=== PATIENT | male | born 1980 | race Caucasian/White ===

== ENCOUNTER 2018-05-07 10:02 | Outpatient (REF) | payer OTHER, SELFPAY ==
[2018-05-07 14:20] LABS: ALT 28 U/L (12-78); AST 22 U/L (15-37); Cholesterol 195 mg/dL (50-200); HDL Cholesterol 37 mg/dL (40-60); LDL CHOLESTEROL 124 mg/dL (<100); Triglyceride 237 mg/dL (30-150)
== END 2018-05-07 10:22 ==
LOC: NCHCN 10:02
PROVIDERS: PCP Internal Medicine; Visit Provider Nurse Practitioner Family
DX: Z00.00 Encounter for general adult medical examination without abnormal findings (principal); Z13.220 Encounter for screening for lipoid disorders
CPT/HCPCS: 80061; 83721; 84450; 84460

== ENCOUNTER 2018-06-12 12:54 | Outpatient (REF) | payer OTHER, SELFPAY ==
--- NOTE | 2018-06-12 10:40 | SKI_PTH ---
PATIENT: Rishi Garcia LOC: [facility] U#:[id number] AGE/SX: 37/M ROOM: RE06/12/[address]: Nurys De La Cruz : 1980 BED: DIS: 06/12/2018 SPEC #: [id number] RECD: 06/13/18 12:47 STATUS: SOLANGE REDavidson #: [id number] TIESHA: 06/12/18 10:[address]: Nurys De La Cruz DEPT: Surgical Specimen RECD BY: Shannan Aparicio ENTERED: 06/13/18 12:48 SP TYPE: SKI OTHR DR: Diomedes Navarro Tissues: 1 - SKIN BIOPSY(SHAVE/PUNCH) Procedures: SKIN LEVEL 4 SPECIAL STAIN 1 Comments: [id number]
== END 2018-06-12 13:14 ==
LOC: NCHCN 12:54
PROVIDERS: PCP Internal Medicine; Visit Provider Nurse Practitioner Family
DX: L30.8 Other specified dermatitis (principal); L85.8 Other specified epidermal thickening; R23.4 Changes in skin texture
CPT/HCPCS: 88305; 88312

== ENCOUNTER 2018-10-30 07:13 | Emergency (ER) | payer OTHER, SELFPAY ==
[2018-10-30 07:19] VITALS: BP 164/98; PULSE 82; RESP 20; TEMP 36.8; O2SAT 100
--- NOTE | 2018-10-30 07:42 | DI.CT_ITS ---
SYMPTOMS/DIAGNOSIS: HEADACHE, VISION CHANGE, ? ACUTE CVA NONCONTRAST HEAD CT: No intracranial hemorrhage, mass or infarct is seen. The ventricles are normal in size. There is mild sinus mucosal thickening. The mastoid air cells appear clear. IMPRESSION: Negative head CT.
--- NOTE | 2018-10-30 08:01 | ED.GENADUL_ITS ---
Discharge Plan Disposition Patient Disposition: HOME Condition: Stable Discharge Details Chief Complaint: Headache Clinical Impression: Headache Primary Care Provider: Diomedes Navarro ED Provider: Jairo Snow Home Meds and New Rx's Prescriptions: No Action cannabidiol (CBD) extract 100 mg/mL Solution 1 mg PO BID RF: 0 Discharge Instructions Instructions: General Headache (ED) Additional Instructions: your lab work and cat scan did not show any concerning findings follow up with your primary care provider within a week you can take 1000mg tylenol and 600mg ibuprofen every 6 hours for pain as needed if your pain gets significantly worse, you have persistent vomit, weakness or feel more ill return to the emergency department Medical Decision Making 38 yo male who denies chronic medical problems comes in with headache. He states yesterday morning he was having wavy vision in the left visual field and that resolved within an hour but at work was having trouble reading names in emails. This improved but then started to have slowly worsening headache. Today he has pain at the very superior portion of his head only when he moves his head. He denies vomit, fevers, chills, no recent trauma. He has no deficits on exam, CN II-xii are intact with nih of 0. Suspect atypical migraine but will obtain ct to eval for pssible ich. Had slowly worsening pain so doubt sah and no fevers or chills so doubt router tender infection. Less likely tia/cva but if negative w/u will refer to pcp pt remains stable and is in no distress stable gait and no deficits, lab and imaging unremarkable. Given only has pain with movement and no recurrent neuro symptoms feel he can f/u with his pcp and return precautions given Differential Diagnosis atypical migraine, sdh, tia Medical Records Medical records reviewed: Yes I reviewed the patient's medical records. Imaging Data Radiologic Study: Attestation: I personally reviewed and interpreted this imaging study as follows: Imaging: CT Scan Radiologist's impression: no acute findings per Dr. Laughlin Lab Data Lab results reviewed: Yes I reviewed the patient's lab results. HPI General Mode of arrival: ambulatory . Date/Time Provider Initiated Documentation: 10/30/18 07:25 . Limitations to Documentation: no limitations . Information obtained by: patient . History of Present Illness 38 year old M presents to the emergency department with the chief complaint of headache, described as moderate, Quality is described as aching, and is localized to the head. Patient started experiencing this day(s) (1) and it has been constant. No relieving factors improve symptom(s), No exacerbating factors reported . Patient did receive the following treatments prior to arrival, none Related Data Home Medications Medication Instructions Recorded Confirmed cannabidiol (CBD) extract 1 mg PO BID 10/30/18 10/30/18 Allergies Allergy/AdvReac Type Severity Reaction Status Date / Time No Known Allergies Allergy Unverified 10/30/18 07:22 General Stated Complaint: Headache MALA: 3 Review of Systems Review of Systems All systems reviewed & are unremarkable except as noted in HPI and below Constitutional Denies chills, Denies fever(s) and Denies weakness Cardiovascular Denies chest pain and Denies dyspnea Respiratory Denies dyspnea Gastrointestinal Denies abdominal pain, Denies nausea and Denies vomiting Musculoskeletal Denies joint swelling Neurologic Denies weakness [facility] Surgical History (Updated 10/30/18 @ 07:25 by Beatriz Wilder) Hx of tonsillectomy (Chronic) Social History Smoking/Tobacco Use Status: Never Alcohol Intake: current Alcohol Intake frequency: a few times a month Substance use type: does not use Do you feel safe at home: Yes Do you feel safe in your relationship?: Yes Exam Const General: no acute distress Orientation: alert HENMT Head: normal to inspection Ears: external ears normal General nose exam: external nose normal Mouth: moist mucous membranes Eyes General: appearance normal, both eyes and all related structures Neck Neck: normal visual inspection Resp Effort & Inspection: normal respiratory effort and able to speak in complete sentences Cardio Rate: regular rate Skin General skin exam: no rashes or lesions noted Neuro General: alert and oriented x3 Extrem General: normal to inspection Psych Mental Status: mental status grossly normal Course Vital Signs Temperature 36.8 C 10/30/18 07:19 Pulse 82 10/30/18 07:19 Respiratory Rate 20 10/30/18 07:19 Blood Pressure 164/98 H 10/30/18 07:19 Pulse Oximetry 100 10/30/18 07:19 Temperature 36.8 C 10/30/18 07:19 Temperature Source Temporal Artery Scan 10/30/18 07:19 Pulse 82 10/30/18 07:19 Respiratory Rate 20 10/30/18 07:19 Respiratory Effort Non-Labored 10/30/18 07:24 Blood Pressure 164/98 H 10/30/18 07:19 Pulse Oximetry 100 10/30/18 07:19 Oxygen Delivery Method Room Air 10/30/18 07:19 Oxygen Flow Rate 0 10/30/18 07:19 Pain Level 1 10/30/18 07:24
[2018-10-30 08:05] LABS: Abs Immature Grans 0.02 k/cumm (0.0-0.09); Absolute Basophil Count 0.01 k/cumm (0.0-0.2); Absolute Eosinophil Count 0.21 k/cumm (0.0-0.7); Absolute Lymphocyte Count 1.95 k/cumm (1.2-3.4); Absolute Monocyte Count 0.31 k/cumm (0.11-0.7); Absolute Neutrophil Count 3.37 k/cumm (1.2-6.7); Basophils % 0.2; Eosinophils % 3.6; HCT 44.4 % (40.0-50.0); HGB 15.6 g/dL (13.5-17.5); Immature Grans % 0.3; Lymphocytes % 33.2; Mean Corp. HGB Concentration 35.1 g/dL (32.0-36.0); Mean Corpuscular Volume 88.3 fL (80-95); Mean Platelet Volume 10.8 fL (8.0-11.0); Monocytes % 5.3; Neutrophils % 57.4; Platelet Count 184 x1000/uL (130-400); RBC 5.03 m/cumm (4.50-6.00); RBC Distribution Width 12.4 % (11.8-14.1); White Blood Cell Count 5.87 k/cumm (4.4-10.8)
[2018-10-30 08:23] LABS: INR 1.1 (0.9-1.1); PTT Activated 25.6 sec (21.0-31.4); Prothrombin Time 10.7 sec (9.3-11.0)
[2018-10-30 09:03] LABS: ALT 19 U/L (12-78); AST 17 U/L (15-37); Albumin 4.2 g/dL (3.4-5.0); Alkaline Phosphatase 53 U/L (46-116); Anion Gap 8.7 mmol/L (3-11); BUN 13 mg/dL (7-18); Bilirubin, Total 0.5 mg/dL (0.2-1.0); CO2 28.3 mmol/L (21.0-32.0); CREATININE 0.94 mg/dL (0.70-1.30); Chloride 105 mmol/L (98-107); Glucose 106 mg/dL (70-100); Potassium 3.7 mmol/L (3.5-5.1); Sodium 142 mmol/L (136-145); Total Protein 7.9 g/dL (6.4-8.2)
[2018-10-30 09:50] VITALS: BP 139/68; PULSE 54; RESP 14; TEMP 36.3; O2SAT 100
--- NOTE | 2018-10-30 17:29 | NUR.NOTE ---
Nursing Note: Faxed referral to PCP for follow up. Sarah Johns.
== END 2018-10-30 09:40 | disposition home or self-care (01) ==
PROVIDERS: Physician Assistant; Emergency Provider Emergency Medicine; PCP Internal Medicine
DX: R51 Headache (principal)
CPT/HCPCS: 36415; 80053; 99284; 70450; 85025; 85610; 85730

== ENCOUNTER 2019-01-02 01:31 | Outpatient (CLI) | payer OTHER, SELFPAY ==
--- NOTE | 2019-01-21 13:06 | W.ZIOMONITOR ---
ZIO Patch Lead Database Administrator Note: This is a ZIO Patch ordered for the indication of palpitations. ?The patch was worn for a total of 13 days and 20 hours. ?The predominant underlying rhythm was normal sinus rhythm with a minimum heart rate of 38 bpm, maximum heart rate of 153 bpm and average heart rate of 61 bpm. ?There were rare (less than 1%) isolated supraventricular ectopic beats. There were no episodes of supraventricular tachycardia. ?There were no episodes of ventricular tachycardia and rare (less than 1%) isolated ventricular ectopic beats. ?There were no episodes of atrial fibrillation, no high degree AV block, and no pauses gradient 3 seconds. ?There were 12 patient triggered events which were associated with normal sinus rhythm, sinus tachycardia, and single ventricular ectopic beats. Date of service: 01/21/19 Time of Service: 13:06
== END 2019-01-02 01:51 ==
PROVIDERS: PCP Internal Medicine; Visit Provider Nurse Practitioner Family
DX: R00.2 Palpitations (principal); R00.0 Tachycardia, unspecified; I49.3 Ventricular premature depolarization
CPT/HCPCS: 0296T

== ENCOUNTER 2020-03-09 20:57 | Outpatient (REF) | payer OTHER, SELFPAY ==
[2020-03-10 18:54] LABS: PSA, Diagnostic 0.7 ng/mL (0.0-2.5)
== END 2020-03-09 21:17 ==
LOC: NCHCN 20:57
PROVIDERS: PCP Nurse Practitioner Family; Visit Provider Internal Medicine
DX: Z80.42 Family history of malignant neoplasm of prostate (principal)
CPT/HCPCS: 84153

== ENCOUNTER 2021-03-31 13:56 | Outpatient (REF) | payer OTHER, SELFPAY ==
[2021-03-31 14:36] LABS: HCT 43.3 % (40.0-50.0); HGB 15.2 g/dL (13.5-17.5); MCH 30.6 pg (27.0-33.0); MCHC 35.1 % (32.0-36.0); MCV 87.3 fL (80-95); MPV 10.8 fL (8.0-11.0); Platelet Count 207 10^3/uL (130-400); RBC 4.96 10^6/uL (4.36-5.78); RDW 11.9 % (11.8-14.1); RDW-SD 38.4 fL
[2021-03-31 14:44] LABS: BUN 12 mg/dL (7-18); CREATININE 0.9 mg/dL (0.70-1.30); Calcium 8.9 mg/dL (8.5-10.1); Chloride 104 mmol/L (98-107); Glucose 75 mg/dL (74-106); Sodium 140 mmol/L (136-145)
[2021-03-31 22:50] LABS: PSA, Screening 0.8 ng/mL (0.0-2.5)
== END 2021-03-31 13:57 | disposition home or self-care (01) ==
LOC: NCHCN 13:56
PROVIDERS: PCP Nurse Practitioner Family; Visit Provider Nurse Practitioner Family
DX: R00.1 Bradycardia, unspecified (principal); R07.81 Pleurodynia; Z12.5 Encounter for screening for malignant neoplasm of prostate
CPT/HCPCS: 80048; 84153; 85027

== ENCOUNTER 2021-04-19 01:11 | Outpatient (CLI) | payer OTHER, SELFPAY ==
--- NOTE | 2021-04-19 08:29 | DI.RAD_ITS ---
Exam(s) XR RIBS LT W PA LAT CHEST EXAM: XR RIBS LT W PA LAT CHEST CLINICAL HISTORY: RIB PAIN, R07.81 TECHNIQUE: 2D digital imaging was performed. COMPARISON: No exams were available for comparison FINDINGS: MEDIASTINUM: Normal. HEART: Normal. PULMONARY VASCULATURE: Normal. LUNGS: Clear. PLEURAL SPACE: No pleural effusion or pneumothorax. BONE:Within normal limits for the patient's age. LEFT RIBS: Normal. OTHER FINDINGS:Normal. IMPRESSION: 1. No acute pulmonary findings. 2. Unremarkable left ribs. DATA REPOSITORY: RADIATION DOSE DELIVERED:
== END 2021-04-19 01:31 ==
PROVIDERS: PCP Nurse Practitioner Family; Visit Provider Nurse Practitioner Family
DX: R07.81 Pleurodynia (principal)
CPT/HCPCS: 71046; 71100

== ENCOUNTER 2021-08-01 07:21 | Emergency (ER) | payer OTHER, SELFPAY ==
[2021-08-01 07:30] VITALS: BP 147/90; PULSE 73; RESP 17; TEMP 37.8; O2SAT 96
--- NOTE | 2021-08-01 07:51 | ED.GENADUL_ITS ---
Discharge Plan Disposition Patient Disposition: HOME Condition: Stable Discharge Details Clinical Impression: Diverticulitis Primary Care Provider: Nurys De La Cruz ED Provider: Keiry Orozco Home Meds and New Rx's Prescriptions: New ondansetron 4 mg tablet,disintegrating 4 mg PO Q6H PRN (Reason: nausea and vomiting) Qty: 10 0RF Discharge Instructions Instructions: Diverticulitis (ED), Diverticulitis Diet (ED) Additional Instructions: Your imaging shows that you have diverticulitis. At time, there is no evidence that you have a complication associated with this. As discussed, there is new body of literature showing that antibiotics may not be necessary and otherwise healthy individual with diverticulitis without any evidence of complications. At the time of discharge, you are unclear if you would like to hold off or begin the antibiotics. I have prescribed an antibiotic and sent to your pharmacy. I have also prescribed you medicine for nausea or vomiting. I have also attached literature on the subject, please also look up your own or discuss with your primary care further. Should you decide to begin the medication, please take the entire course. While on the antibiotic, please take probiotic or eat yogurt. Please encourage hydration. You may use tylenol and/or Ibuprofen as needed for discomfort. Please call your primary care today to schedule appointment in the next 48 hours. If you develop increased pain, fevers/chills, inability to stay hydrated or other new/worsening symptoms, please seek care urgently once again. Referrals: Nurys De La Cruz [Primary Care Provider] - Discharge Data Discharge Date/Time-TO BE ENTERED AT DEPARTURE: 08/01/21 11:23 Medical Decision Making Patient is a pleasant 41-year-old male without significant past medical history presenting today with chief complaint of left lower quadrant pain. He reports that last night around 730 he had fried chicken for dinner which he states was quite large meal and subsequently developed diffuse abdominal discomfort 30 minutes after. States that he was nauseated and felt like he might develop diarrhea. Has not had a bowel movement since the onset of discomfort, did have a normal bowel movement yesterday that was nonbloody. He states that while the pain is initially diffuse, throughout the night it became more focal in the left lower quadrant remains tender in that area. States the pain is exacerbated by movement or heel strikes and walking. He denies any fevers or chills. Denies any chest pain or shortness of breath. States he also has some mild discomfort on the right side of his abdomen but to a lesser extent. He has not had pain like this previously No previous abdominal surgeries. Denies any radiation of pain, particular radiation to back or testicles. States that he did have 1 episode where abdominal discomfort increased slightly with urination. Reports h e drinks 1 beer a few nights per week. No alcohol last night. On exam, patient appears nontoxic. Patient is slightly hypertensive, has low- grade fever. Lungs are clear, normal cardiac exam. Abdominal exam is pertinent for pain with palpation of the left lower quadrant. No CVA tenderness. Patient did have some rebound tenderness mild guarding in the left lower quadrant. No pain on the right side or over McBurney's point. Differential diagnosis at this time is most concerning for diverticulitis. He did have some discomfort with urination, also considered potential UTI. He has no CVA tenderness so doubt stone. Pain is not an appropriate location for appendicitis although this is low on the differential. Also considered pancreatitis but as he has no upper discomfort at this time and no heavy alcohol intake, this too is lower my differential. Plan to move forward with CT with oral contrast. Holding off on IV given the national shortage. We will hydrate the patient, give Tylenol for his low-grade fever and discomfort, Zofran for his nausea. Patient reports feeling significantly improved after the Tylenol and Zofran. No longer nauseous. Labs reviewed. No leukocytosis. Stable H&H. CMP without significant abnormality. Urine suggestive of dehydration with an elevated specific gravity. Contacted by the radiologist who advised that the scan is positive for diverticu litis, no evidence of perforation or abscess. Formation. Discussed the findings with the patient. Patient and I had ashared decision- making conversation regarding antibiotic versus watch and wait approach. Per up-to-date, recommendation now is to hold off on antibiotics and low risk patient which this patient certainly is. We did discuss dietary recommendations. Per up-to-date, I did recommend initially more of a liquid diet. I did advise the patient that locally, surgical team is continuing to treat with p.o. antibiotics when I last spoke with them. Patient is not clear at this time if he would like to begin antibiotics would like to hold off. I will provide the patient with some literature, patient will be looking at his on, plan to prescribe the antibiotics in the event that he would like to begin this. Also prescribe Zofran for any recurrent nausea. I advised close follow- up with primary care, he will call today to schedule appointment for the next 48 hours. Strict return precautions discussed. All of his questions and concerns were addressed and he is in agreement with this plan. HPI General Date/Time Provider Initiated Documentation: 08/01/21 07:50 . Limitations to Documentation: no limitations . Information obtained by: patient . History of Present Illness 41 year old M presents to the emergency department with the chief complaint of LLQ pain, described as moderate, with intensity rated at 6. Quality is described as stabbing, and is localized to the abdomen. Patient reports no radiation. Patient started experiencing this day(s) (1999 last night) and it has been con stant. Immobilization improves symptom(s), Movement worsens symptoms . Patient notes loss of appetite and nausea/vomiting (nausea, no vomiting); denies chest pain, cough, fever/chills, malaise and shortness of breath. Patient did receive the following treatments prior to arrival, none Related Data Home Medications Medication Instructions Recorded Confirmed ondansetron 4 mg disintegrating 4 mg PO Q6H PRN nausea and 08/01/21 tablet vomiting #10 tabs Previous Rx's Medication Instructions Recorded ondansetron 4 mg disintegrating 4 mg PO Q6H PRN nausea and 08/01/21 tablet vomiting #10 tabs Allergies Allergy/AdvReac Type Severity Reaction Status Date / Time No Known Allergies Allergy Unverified 08/01/21 07:37 General Stated Complaint: Abd Prob MALA: 3 Review of Systems Constitutional Constitutional: Reports as per HPI, Denies chills, Reports fatigue and Denies fever(s) Cardiovascular Cardiovascular: Reports as per HPI, Denies chest pain and Denies dyspnea Respiratory Respiratory: Reports as per HPI, Denies cough and Denies dyspnea Gastrointestinal Gastrointestinal: Reports as per HPI Genitourinary Genitourinary: Denies system reviewed and no additional complaints, except as documented (patient denies any change in urinary habits) Musculoskeletal Musculoskeletal: Reports as per HPI and Denies back pain Integumentary/Breasts Skin/Breast: Reports as per HPI and Denies rash Neurologic Neurologic: Reports as per HPI Endocrine Endocrine: Reports fatigue PFSH All Active Problems (Updated 08/01/21 @ 10:18 by GALILEO Ballesteros) Diverticulitis (Chronic) Surgical History Hx of tonsillectomy Social History Smoking/Tobacco Use Status: Never Smoking risk assessment performed?: Yes Alcohol Intake: current Alcohol Intake frequency: a few times a month Drug use: Never Substance use type: does not use Do you feel safe at home: Yes Do you feel safe in your relationship?: Yes Exam Const General: cooperative, healthy appearing, comfortable, no acute distress and well developed Nutritional Appearance: average body habitus and well nourished Orientation: alert and awake HENMT Head: normal to inspection Mouth: moist mucous membranes Resp Effort & Inspection: normal respiratory effort, able to speak in complete sentences and no respiratory distress Auscultation: clear to auscultation bilaterally, no rales, no rhonchi and no wheezes Cardio Rate: regular rate Rhythm: regular rhythm Heart Sounds: S1 normal and S2 normal GI Inspection: normal to inspection Palpation: soft, no hepatosplenomegaly, not firm, guarding in the LLQ, no hernias, no masses, not rigid, tender in the LLQ and with rebound tenderness; Dorsey's sign negative and obturator sign negative and No ascites Percussion: normal to percussion Auscultation: normal bowel sounds Back/Spine/Pelvis Back: no CVA tenderness Skin General skin exam: no rashes or lesions noted Trauma: no lacerations or abrasions Neuro General: patient alert and patient awake Cognition: normal cognition Speech: speech normal Gait: normal gait Psych Appearance: grossly normal and well kempt Mental Status: mental status grossly normal Speech and Movement: speech and movement normal Course Vital Signs Vital signs: Vital Signs Temperature 37.8 C H 08/01/21 07:30 Pulse 73 08/01/21 07:30 Respiratory Rate 17 08/01/21 07:30 Blood Pressure 147/90 H 08/01/21 07:30 Pulse Oximetry 96 08/01/21 07:30 Temperature 37.8 C H 08/01/21 07:30 Temperature Source Temporal Artery Scan 08/01/21 07:30 Pulse 73 08/01/21 07:30 Respiratory Rate 17 08/01/21 07:30 Respiratory Effort Non-Labored 08/01/21 07:32 Blood Pressure 147/90 H 08/01/21 07:30 Blood Pressure Position Sitting 08/01/21 07:30 Pulse Oximetry 96 08/01/21 07:30 Oxygen Delivery Method Room Air 08/01/21 07:30 Oxygen Flow Rate 0 08/01/21 07:30 Pain Level 6 08/01/21 07:32 Comment 08/01/21 07:30 PAWSS Have you Been Recently Intoxicated or Drunk Within the Last 30 days?: No Have you Ever Experienced Previous Episodes of Alcohol Withdrawal?: No Have you ever Experienced Withdrawal Seizures?: No Have you ever Experienced Delirium Tremens(DT)s?: No Have you ever undergone Alcohol Rehabilitation Treatment (i.e, inpt ot outpatient treatment programs)?: No Have you ever Experienced Blackouts?: No Have you ever Combined Alcohol with other Downers within the last 90 days?: No Have you ever Combined Alcohol with any other Substance of Abuse during the last 90 days?: No Positive Blood Alcohol level on Presentation? [PCS.BAL]: No Evidence of Increased Autonomic Activity (i.e. HR>120, tremor, sweating, agitation, nausea)?: No Result: 0
--- NOTE | 2021-08-01 08:05 | DI.CT_ITS ---
Exam(s) CT ABDOMEN PELVIS WO EXAM: CT ABDOMEN PELVIS WO CLINICAL HISTORY: LLQ pain. TECHNIQUE: Imaging Protocol: Axial computed tomography images with coronal and sagittal reformatted images were created and reviewed. COMPARISON: No exams were available for comparison FINDINGS: ABDOMEN: Lung Bases: Normal where visualized. Liver: Normal density. No measurable mass. Gallbladder and biliary tract: No radiodense calculus or biliary ductal dilation. Pancreas: Normal density, no abnormal calcifications or inflammatory process. Spleen: Normal. Kidneys: Normal size, contour and axis.No radiodense stones or obstructive uropathy. No masses seen. Adrenal glands: No mass is seen. Lymph nodes: Within normal limits. Abdominal Aorta: Abdominal portion non-dilated. PELVIS: Bladder:Symmetric distention, no gross wall thickening. Bowel: There is diverticulosis present throughout the transverse, descending and sigmoid colon. Ther e is bowel wall thickening seen in the proximal sigmoid colon with pericolonic inflammatory changes c onsistent with acute diverticulitis. No abscess or free air is seen. Appendix is unremarkable. Peritoneal cavity: There is a trace amount of free fluid in the pelvis. No free air. Reproductive organs: Within normal limits. Bones: Within normal limits. There is L5 spondylolysis with grade 1 spondylolisthesis of L5 on S1. Soft Tissues: Within normal limits. IMPRESSION: 1. Findings of acute sigmoid diverticulitis. No abscess or free air. 2. Results of this exam have been verbally communicated with provider. RADIATION DOSE DELIVERED: 766.51mGy.cm Total DLP DATA REPOSITORY: All CT scans at this facility are submitted to the National Radiology Data Registry (NRDR) Dose Index Registry (DIR) with the [employer] ([employer]). RADIATION OPTIMIZATION: All CT scans at this facility use at least one of these dose optimization te chniques: automated exposure control; mA and/or kV adjustment per patient size (includes targeted exa ms where dose is matched to clinical indication); or iterative reconstruction.
[2021-08-01] MEDS: ACETAMINOPHEN 1,000 MG/100 ML BTL 400 MG IVPB (08:23)
[2021-08-01] MEDS: Ondansetron 4 MG/2 ML VIAL IVP (08:23)
[2021-08-01] MEDS: Normal Saline 1,000 ML 1000 ML IV (08:24)
[2021-08-01 08:37] LABS: Abs Immature Grans 0.03 10^3/uL (0.0-0.06); Absolute Basophil Count 0.03 10^3/uL (0.0-0.2); Absolute Eosinophil Count 0.21 10^3/uL (0.0-0.7); Absolute Lymphocyte Count 1.47 10^3/uL (1.2-3.4); Absolute Monocyte Count 0.57 10^3/uL (0.1-0.8); Basophils % 0.3; Eosinophils % 2.2; HCT 39.8 % (40.0-50.0); HGB 13.9 g/dL (13.5-17.5); Immature Grans % 0.3; Lymphocytes % 15.5; MCH 30.8 pg (27.0-33.0); MCHC 34.9 % (32.0-36.0); MCV 88 fL (80-95); MPV 10.7 fL (8.0-11.0); Neutrophils % 75.7; Platelet Count 182 10^3/uL (130-400); RBC 4.52 10^6/uL (4.36-5.78); RDW 11.7 % (11.8-14.1); RDW-SD 37.3 fL; WBC 9.51 10^3/uL (4.4-10.8)
[2021-08-01 08:39] LABS: Bilirubin Negative (Negative); Blood Negative (Negative); Clarity Clear (Clear); Glucose Negative (Negative); Ketones Negative (Negative); Leukocyte Esterase Negative (Negative); Nitrite Negative (Negative); Specific Gravity >= 1.030 (1.005-1.025); Urobilinogen 0.2 EU/dL (Up TO 0.2)
[2021-08-01 08:48] LABS: ALT 27 U/L (16-63); AST 23 U/L (15-37); Albumin 3.8 g/dL (3.4-5.0); Alkaline Phosphatase 57 U/L (46-116); Anion Gap 6.4 mmol/L (3-11); BUN 12 mg/dL (7-18); Bilirubin, Total 0.5 mg/dL (0.2-1.0); CO2 29.6 mmol/L (21.0-32.0); CREATININE 0.9 mg/dL (0.70-1.30); Calcium 8.2 mg/dL (8.5-10.1); Chloride 105 mmol/L (98-107); Glucose 101 mg/dL (74-106); Lipase 39 U/L (73-393); Magnesium 2.4 mg/dL (1.8-2.4); Potassium 3.8 mmol/L (3.5-5.1); Sodium 141 mmol/L (136-145); Total Protein 7.3 g/dL (6.4-8.2)
[2021-08-01] MEDS: Breeza Beverage 473 ML BTL PO ×2 (09:59→10:00)
[2021-08-01] MEDS: Gastrografin 120 ML BTL PO (10:00)
[2021-08-01 11:19] VITALS: BP 130/83; PULSE 58; RESP 16; TEMP 37.4; O2SAT 97
== END 2021-08-01 11:23 | disposition home or self-care (01) ==
PROVIDERS: Emergency Provider Physician Assistant; PCP Nurse Practitioner Family
DX: K57.92 Diverticulitis of intestine, part unspecified, without perforation or abscess without bleeding (principal); R10.32 Left lower quadrant pain
CPT/HCPCS: 36415; 80053; 83690; 96361; 96374; 96375; 99284; 74176; 81003; 83735; 85025; J0131; J2405

== ENCOUNTER → 2022-01-10 12:58 | Outpatient (CLI) | payer OTHER, SELFPAY ==
[2022-01-10] MEDS: Barium Sulfate 2% W/V-Berry Smoothie 450 ML BTL PO ×2 (11:17→11:18)
--- NOTE | 2022-01-10 13:00 | DI.CT_ITS ---
Exam(s) CT ABDOMEN PELVIS W EXAM: CT ABDOMEN PELVIS W CLINICAL HISTORY: PERIUMBILICAL ABD PAIN, R10.33,DIVERTICULITIS,K57.92. TECHNIQUE: Imaging Protocol: Axial computed tomography images with coronal and sagittal reformatted images were created and reviewed CONTRAST MATERIAL: Intravenous: Omnipaque 100cc Oral: Yes COMPARISON: CT CT ABDOMEN PELVIS WO from 08/01/2021 FINDINGS: VISUALIZED LUNG BASES: No nodules nor pleural effusions evident. ABDOMEN: There is no ascites. LIVER: There are no focal hepatic lesions evident. There are no dilated intrahepatic ducts. GALLBLADDER/BILIARY: No obvious gallbladder pathology. CBD is not dilated. PANCREAS: No evidence of pancreatic mass nor dilatation of the pancreatic duct. SPLEEN: Spleen size upper normal. No intrasplenic lesions. There is a 2 cm splenule medial to the s pleen again noted. Splenic and portal veins are patent. ADRENALS: There are no significant adrenal masses. KIDNEYS:There is a 1 cm benign cyst in superior pole the left kidney. No other focal renal findings. No calculi. No hydronephrosis on either side. Ureters are not dilated. Urinary bladder wall is u niformly thickened.. ABDOMINAL AORTA: Abdominal aorta is not enlarged. LYMPH NODES:There is no retroperitoneal nor paraaortic adenopathy. ABDOMINAL WALL: No evidence of significant anterior abdominal wall nor inguinal hernia. GI: There is extensive sigmoid diverticulosis and there is acute diverticulitis with significant wall thickening and streaking and developing mural abscess on the right side of the sigmoid which measure s approximately 2.5 x 2.2 x 2.0 cm. PELVIS: GI: No evidence of appendicitis.Severe sigmoid diverticulitis as above. LYMPH NODES: There is no intrapelvic nor inguinal adenopathy. REPRODUCTIVE: Prostate not enlarged. URINARY BLADDER: Uniform thickening of the bladder wall. No gas-air in the bladder to suggest fistul ous communication. OSSEOUS: No significant osseous lesions. No fractures. Anterolisthesis L5 on S1 due to bilateral pars defects at L5 and there is moderate disc space narrowi ng at this level. IMPRESSION: 1. Extensive sigmoid diverticulosis with severe acute diverticulitis and abscess formation as describ ed above. Surgical consultation recommended. Wet read performed RADIATION DOSE DELIVERED: 837.18mGy.cm Total DLP DATA REPOSITORY: All CT scans at this facility are submitted to the National Radiology Data Registry (NRDR) Dose Index Registry (DIR) with the [employer] (ACR). RADIATION OPTIMIZATION: All CT scans at this facility use at least one of these dose optimization te chniques: automated exposure control; mA and/or kV adjustment per patient size (includes targeted exa ms where dose is matched to clinical indication); or iterative reconstruction.
[2022-01-10] MEDS: Omnipaque 350 MG/ML 500 ML BTL-Imaging package IJ (13:23)
== END ==
PROVIDERS: PCP Nurse Practitioner Family; Visit Provider Nurse Practitioner Family
DX: K57.30 Diverticulosis of large intestine without perforation or abscess without bleeding (principal); K57.32 Diverticulitis of large intestine without perforation or abscess without bleeding
CPT/HCPCS: 74177

== ENCOUNTER 2022-01-10 14:45 | Inpatient (IN) | payer OTHER, SELFPAY ==
[2022-01-10 14:52] VITALS: BP 140/85; PULSE 78; RESP 18; TEMP 36.8; O2SAT 97
--- NOTE | 2022-01-10 14:57 | ED.GENADUL_ITS ---
Discharge Plan Disposition Patient Disposition: STILL A PATIENT Condition: Stable Discharge Details Chief Complaint: Abd Prob Clinical Impression: Diverticulitis of intestine with abscess Primary Care Provider: Nurys De La Cruz ED Provider: Micah Sena Home Meds and New Rx's Prescriptions: No Action ondansetron 4 mg tablet,disintegrating 4 mg PO Q6H PRN (Reason: nausea and vomiting) Qty: 10 0RF Medical Decision Making 41-year-old gentleman with a past medical history of diverticulitis was seen at the urgent care today, CT reveals diverticulitis with abscess formation, recommend surgical consultation. Outpatient laboratory values were also ordered but still pending. Plan is to obtain IV access, obtain lactate, blood cultures, COVID test. Will provide IV Flagyl and Cipro. Will request surgical consultation. Patient appears well, nontoxic. This documentation was generated using [employer] system, please disregard any oddities of phrase or misspellings. Medical Records Medical records reviewed: Yes I reviewed the patient's medical records. Imaging Data Radiologic Study: Attestation: I personally reviewed and interpreted this imaging study as follows: Imaging: CT Scan Radiologist's impression: Exam(s) a CT:CT abdomen & pelvis w Exam(s) CT ABDOMEN ? PELVIS W EXAM: ? CT ABDOMEN ? PELVIS W CLINICAL HISTORY: ? PERIUMBILICAL ABD PAIN, R10.33,DIVERTICULITIS,K57.92. ? TECHNIQUE:? Imaging Protocol: Axial computed tomography images with coronal and sagittal reformatted images were created and reviewed CONTRAST MATERIAL:? Intravenous: Omnipaque 100cc Oral: Yes COMPARISON:? CT CT ABDOMEN ? PELVIS WO from 08/01/2021 FINDINGS: VISUALIZED LUNG BASES: No nodules nor pleural effusions evident.? ABDOMEN: There is no ascites. LIVER: There are no focal hepatic lesions evident.? There are no dilated intrahepatic ducts. GALLBLADDER/BILIARY: No obvious gallbladder pathology.? CBD is not dilated. PANCREAS: No evidence of pancreatic mass nor dilatation of the pancreatic duct.? SPLEEN: Spleen size upper normal.? No intrasplenic lesions.? There is a 2 cm splenule medial to the spleen again noted.? Splenic and portal veins are patent. ADRENALS: There are no significant adrenal masses. KIDNEYS:There is a 1 cm benign cyst in superior pole the left kidney.? No other focal renal findings.? No calculi.? No hydronephrosis on either side.? Ureters are not dilated.? Urinary bladder wall is uniformly thickened.. ABDOMINAL AORTA: Abdominal aorta is not enlarged. LYMPH NODES:There is no retroperitoneal nor paraaortic adenopathy. ABDOMINAL WALL: No evidence of significant anterior abdominal wall nor inguinal hernia. GI: There is extensive sigmoid diverticulosis and there is acute diverticulitis with significant wall thickening and streaking and developing mural abscess on the right side of the sigmoid which measures approximately 2.5 x 2.2 x 2.0 cm. PELVIS:? GI: No evidence of appendicitis.Severe sigmoid diverticulitis as above. LYMPH NODES: There is no intrapelvic nor inguinal adenopathy. REPRODUCTIVE: Prostate not enlarged. URINARY BLADDER: Uniform thickening of the bladder wall.? No gas-air in the bladder to suggest fistulous communication. OSSEOUS: No significant osseous lesions.? No fractures. 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 IMPRESSION: 1. Extensive sigmoid diverticulosis with severe acute diverticulitis and abscess formation as described above.? Surgical consultation recommended. Lab Data Lab results reviewed: Yes I reviewed the patient's lab results. Labs: 01/10/22 15:23 Blood Blood Culture - Pending 01/10/22 15:23 Blood Blood Culture - Pending Laboratory Tests Range/Units 01/10/22 01/10/22 15:05 15:08 VBG Lactate (0.6-1.4) mmol/L 0.7 COVID-19 Source Nasal/Nares HPI General Mode of arrival: ambulatory . Date/Time Provider Initiated Documentation: 01/10/22 14:55 . Limitations to Documentation: no limitations . Information obtained by: patient . History of Present Illness 41 year old M presents to the emergency department with the chief complaint of abd pain, described as moderate, with intensity rated at 6. Quality is described as aching, and is localized to the abdomen. Patient reports no radiation. Patient started experiencing this week(s) (1) and it has been constant. No relieving factors improve symptom(s), No exacerbating factors reported . Patient notes nausea/vomiting (mild nausea) and other (Diarrhea). Patient did receive the following treatments prior to arrival, other (Seen at urgent care) Related Data Home Medications Medication Instructions Recorded Confirmed ondansetron 4 mg disintegrating 4 mg PO Q6H PRN nausea and 08/01/21 tablet vomiting #10 tabs Previous Rx's Medication Instructions Recorded ondansetron 4 mg disintegrating 4 mg PO Q6H PRN nausea and 08/01/21 tablet vomiting #10 tabs Allergies Allergy/AdvReac Type Severity Reaction Status Date / Time No Known Allergies Allergy Unverified 08/01/21 07:37 General Stated Complaint: Abd Prob MALA: 3 Review of Systems Constitutional Constitutional: Reports fever(s) (Earlier in the week) and Denies weakness ENT Ears, Nose, Mouth, and Throat: Denies neck pain Cardiovascular Cardiovascular: Denies chest pain and Denies dyspnea Respiratory Respiratory: Denies cough and Denies dyspnea Gastrointestinal Gastrointestinal: Reports abdominal pain, Denies melena, Denies hematochezia, Reports diarrhea, Reports nausea and Denies vomiting Genitourinary Genitourinary: Denies dysuria Musculoskeletal Musculoskeletal: Denies back pain and Denies neck pain Integumentary/Breasts Skin/Breast: Denies rash Neurologic Neurologic: Denies weakness Hematologic/Lymphatic Hematologic/Lymphatic: Denies easy bleeding and Denies easy bruising PFSH All Active Problems (Updated 01/10/22 @ 15:29 by GALILEO Briones) Diverticulitis of intestine with abscess (Acute) Surgical History Hx of tonsillectomy Social History Smoking/Tobacco Use Status: Never Smoking risk assessment performed?: Yes Alcohol Intake: current Alcohol Intake frequency: a few times a month Drug use: Never Substance use type: does not use Do you feel safe at home: Yes Do you feel safe in your relationship?: Yes Exam Const General: cooperative, healthy appearing, comfortable and no acute distress Orientation: alert, awake and oriented x3 HENMT Head: normal to inspection, normocephalic and atraumatic Mouth: moist mucous membranes Eyes Conjunctivae: conjunctivae normal Neck Neck: normal visual inspection, full ROM, no meningeal signs, trachea midline and supple Resp Effort & Inspection: normal respiratory effort and able to speak in complete sentences Auscultation: clear to auscultation bilaterally Cardio Rate: regular rate Rhythm: regular rhythm GI Palpation: soft, not firm, no guarding, no pulsatile masses and tender in the LLQ and suprapubicly Auscultation: normal bowel sounds Back/Spine/Pelvis Back: no CVA tenderness and No back tenderness Skin General skin exam: no rashes or lesions noted Neuro General: patient alert, patient awake, moves all extremities and no focal motor deficits Cognition: normal cognition Speech: speech normal Gait: normal gait Sensory Exam: no sensory deficits noted Psych Appearance: grossly normal Mental Status: mental status grossly normal Course Vital Signs Vital signs: Vital Signs Temperature 36.8 C 01/10/22 14:52 Pulse 78 01/10/22 14:52 Respiratory Rate 18 01/10/22 14:52 Blood Pressure 140/85 01/10/22 14:52 Pulse Oximetry 97 01/10/22 14:52 Temperature 36.8 C 01/10/22 14:52 Temperature Source Oral 01/10/22 14:52 Pulse 78 01/10/22 14:52 Respiratory Rate 18 01/10/22 14:52 Blood Pressure 140/85 01/10/22 14:52 Blood Pressure Position Supine 01/10/22 14:52 Pulse Oximetry 97 01/10/22 14:52 Oxygen Delivery Method Room Air 01/10/22 14:52 Oxygen Flow Rate 0 01/10/22 14:52 Pain Level 2 01/10/22 14:52
[2022-01-10 15:14] LABS: Source Nasal/Nares
[2022-01-10 15:15] LABS: Lactate 0.7 mmol/L (0.6-1.4)
[2022-01-10 15:32] LABS: INR 1.1 (0.9-1.1); PTT Activated 31.1 sec (21.0-27.5); Prothrombin Time 11.2 sec (9.3-11.0)
[2022-01-10] MEDS: metroNIDAZOLE 500 MG/100 ML BAG 100 MG IVPB ×2 (15:53→23:41)
[2022-01-10 15:57] LABS: COVID-19 PCR Negative (Negative)
--- NOTE | 2022-01-10 16:08 | HPE_ITS ---
Date of service: 01/10/22 Time of Service: 16:08 Assessment and Plan Assessment and plan (1) Diverticulitis of intestine with abscess: Status: Acute Assessment and plan: Mr. Garcia is a pleasant 41 year old with diverticulitis with small 2 x 2.5 cm abscess. We discussed treatment with IV antibiotics. The abscess is small enough that hopefully antibiotics alone will clear up the infection. If his sy mptoms worsen despite the IV antibiotics then he may need a CT guided drain placement. If drain placement is not possible or he becomes septic then he may need surgery with colostomy. Plan: Admit Diet: sips of clears Abx- Cipro and flagyl, started in the ER Activity- ambulate ad medardo Pain control- multimodal with tylenol, toradol and Morphine DVT prophilaxis- ambulation and SCD's GI profilaxis- protonix IV Discharge planning- home once infection is under control Outpatient colonoscopy in 6 weeks 45 minutes spend reviewing the chart, CT scan, seeing the patient and documenting History of Present Illness Narrative: Mr. Garcia is a pleasant 41 year old who was sent in to the ED after having a CT scan done which showed diverticulitis with a small 2x2.5 cm abscess. He started to have LLQ pain on 12/29. He had a fever for 48 hours. He then felt better for 48 hours and then the pain started to come back. He finally decided to have it checked out. He had his first Diverticulitis attack in May this year and was treated as an outpatient. He denies N/V or diarrhea. I reviewed the CT scan and it shows inflammation of the sigmoid colon with a small abscess. Blood work is unremarkable. WBC count is normal Review of Systems Constitutional Constitutional: Denies fever(s), Denies headache(s), Denies night sweats and Denies weight loss Eyes Eyes: Denies change in vision ENT Ears, Nose, Mouth, and Throat: Denies dysphagia, Denies vertigo and Denies h eadache(s) Cardiovascular Cardiovascular: Denies chest pain, Denies chest pain at rest, Denies irregular heart rhythm, Denies palpitations and Denies dyspnea Respiratory Respiratory: Denies cough and Denies dyspnea Gastrointestinal Gastrointestinal: Reports as per HPI, Denies dysphagia, Denies dyspepsia and Denies heartburn Genitourinary Genitourinary: Denies dysuria Musculoskeletal Musculoskeletal: Reports system reviewed and no additional complaints, except as documented Integumentary/Breasts Skin/Breast: Reports system reviewed and no additional complaints, except as documented Neurologic Neurologic: Reports system reviewed and no additional complaints, except as documented, Denies vertigo and Denies headache(s) Psychiatric Psychiatric: Reports system reviewed and no additional complaints, except as documented Endocrine Endocrine: Reports system reviewed and no additional complaints, except as documented and Denies palpitations PFSH All Active Problems (Updated 01/10/22 @ 16:13 by Dorina Fishman MD) Diverticulitis of intestine with abscess (Acute) Medical History (Updated 01/10/22 @ 16:13 by Dorina Fishman MD) Bilateral groin pain (01/02/17) Diverticulitis large intestine w/o perforation or abscess w/o bleeding (~05/2021) Surgical History Hx of tonsillectomy Family History (Updated 01/10/22 @ 16:13 by Dorina Fishman MD) Father Prostate cancer Social History Smoking/Tobacco Use Status: Never Smoking risk assessment performed?: Yes Alcohol Intake: current Alcohol Intake frequency: a few times a month Drug use: Never Substance use type: does not use Do you feel safe at home: Yes Do you feel safe in your relationship?: Yes Meds Allergies and Home Medications Allergies Allergy/AdvReac Type Severity Reaction Status Date / Time No Known Allergies Allergy Unverified 08/01/21 07:37 Home Medications Medication Instructions Recorded Confirmed Type ondansetron 4 mg disintegrating 4 mg PO Q6H PRN nausea and 08/01/21 Rx tablet vomiting #10 tabs Exam Const General: comfortable and no acute distress HENMT Head: normocephalic and atraumatic Resp Effort & Inspection: normal respiratory effort Auscultation: clear to auscultation bilaterally Cardio Rate: regular rate Rhythm: regular rhythm Heart Sounds: no gallops, no murmurs and no rubs GI Inspection: normal to inspection Palpation: soft, no hepatosplenomegaly and tender in the LLQ (no guarding or rebound) General: deferred Results Imaging Abdomen CT scan report/results: report reviewed and image reviewed Labs Labs: Laboratory Results - last 24 hr 10/25/22 10/25/22 10/25/22 15:05 15:05 15:08 PT 11.2 H INR 1.1 APTT 31.1 H VBG Lactate 0.7 COVID-19 Source Nasal/Nares SARS-CoV-2 (PCR) Negative Last Vital Signs Temp 98.3 F 01/10/22 14:52 Pulse 78 01/10/22 14:52 Resp 18 01/10/22 14:52 BP 140/85 01/10/22 14:52 Pulse Ox 97 01/10/22 14:52 PAWSS Have you Been Recently Intoxicated or Drunk Within the Last 30 days?: No Have you Ever Experienced Previous Episodes of Alcohol Withdrawal?: No Have you ever Experienced Withdrawal Seizures?: No Have you ever Experienced Delirium Tremens(DT)s?: No Have you ever undergone Alcohol Rehabilitation Treatment (i.e, inpt ot outpatient treatment programs)?: No Have you ever Experienced Blackouts?: No Have you ever Combined Alcohol with other Downers within the last 90 days?: No Have you ever Combined Alcohol with any other Substance of Abuse during the last 90 days?: No Positive Blood Alcohol level on Presentation? [PCS.BAL]: No Evidence of Increased Autonomic Activity (i.e. HR>120, tremor, sweating, agitation, nausea)?: No Result: 0
[2022-01-10 16:41] VITALS: BP 139/79; PULSE 68; RESP 18; TEMP 37.6; O2SAT 98
[2022-01-10] MEDS: Pantoprazole 40 MG VIAL IVP (17:05)
[2022-01-10] MEDS: Normal Saline Flush 10 ML SYR IVP ×2 (17:06→23:41)
[2022-01-10] MEDS: Normal Saline 1,000 ML 75 ML IV (17:06)
[2022-01-10] MEDS: CIPROFLOXACIN 400 MG/200 ML BAG 200 MG IVPB (17:06)
[2022-01-10 22:36] VITALS: BP 138/76; PULSE 67; RESP 18; TEMP 36.7; O2SAT 98
[2022-01-10] MEDS: Ketorolac 30 MG/ML VIAL IVP (23:40)
[2022-01-11] MEDS: CIPROFLOXACIN 400 MG/200 ML BAG 200 MG IVPB ×2 (04:07→15:39)
[2022-01-11 04:16] VITALS: BP 117/69; PULSE 54; RESP 16; TEMP 36.5; O2SAT 95
[2022-01-11 07:07] LABS: Abs Immature Grans 0.03 10^3/uL (0.0-0.06); Absolute Basophil Count 0.02 10^3/uL (0.0-0.2); Absolute Eosinophil Count 0.23 10^3/uL (0.0-0.7); Absolute Lymphocyte Count 1.61 10^3/uL (1.2-3.4); Absolute Monocyte Count 0.74 10^3/uL (0.1-0.8); Absolute Neutrophil Count 4.92 10^3/uL (1.2-6.7); Basophils % 0.3; HCT 35.3 % (40.0-50.0); HGB 12.3 g/dL (13.5-17.5); Immature Grans % 0.4; Lymphocytes % 21.3; MCH 30.7 pg (27.0-33.0); MCHC 34.8 % (32.0-36.0); MCV 88 fL (80-95); MPV 9.9 fL (8.0-11.0); Monocytes % 9.8; Neutrophils % 65.2; Platelet Count 212 10^3/uL (130-400); RBC 4.01 10^6/uL (4.36-5.78); RDW 11.4 % (11.8-14.1); WBC 7.55 10^3/uL (4.4-10.8)
[2022-01-11 07:15] VITALS: BP 126/78; PULSE 55; RESP 18; TEMP 36.4; O2SAT 97
[2022-01-11] MEDS: metroNIDAZOLE 500 MG/100 ML BAG 100 MG IVPB ×3 (07:20→23:56)
[2022-01-11] MEDS: Ketorolac 30 MG/ML VIAL IVP (07:21)
--- NOTE | 2022-01-11 08:52 | INITIAL_ITS ---
- If Service Date Differs Date of service: 01/11/22 Time of Service: 08:52 Care Management Initial Assess REASON FOR HOSPITALIZATION:: Diverticulitis of intestine with abscess PAST MEDICAL HISTORY/PAST SURGICAL HISTORY:: All Active Problems (Updated 01/10/22 @ 16:13 by Dorina Fishman MD). Diverticulitis of intestine with abscess (Acute). Medical History (Updated 01/10/22 @ 16:13 by Dorina Fishman MD). Bilateral groin pain (01/02/17). Diverticulitis large intestine w/o perforation or abscess w/o bleeding (~05/2021). Surgical History . Hx of tonsillectomy PREVIOUS FUNCTIONAL STATUS/SOCIAL/FAMILY SUPPORTS:: Rishi lives in [place] with his Iris. They have 1 child. Rishi is independent at baseline and is employed at [employer]. CURRENT FUNCTIONAL STATUS:: Rishi is sitting up in his chair when CM met with him. He is alert, oriented and easily engage in conversation. He is visiting with family. He denies pain and has no concerns at this time. ADVANCE DIRECTIVES:: None on file, CM will offer forms. Has patient been provided with info about the portal/API?: Yes Did the patient sign up for the portal?: No CODE STATUS:: Full Code INSURANCE COVERAGE / FINANCIAL ISSUES:: [employer] CURRENT HOME/COMMUNITY SERVICES/EQUIPMENT:: None PRIMARY CARE PHYSICIAN:: Nurys De La Cruz PATIENT/FAMILY EDUCATION NEEDS:: Review discharge instructions, limitations, medications and plan to follow up with community providers. Discuss ask me three. TRANSPORTATION:: Via private vehicle PLAN:: Anticipate Rishi will discharge home with no new services. He has a car in the parking lot, and plans to drive himself home after he's discharged. Rishi will follow up with community providers and discharge plan of care as prescribed.
[2022-01-11] MEDS: Normal Saline Flush 10 ML SYR IVP ×3 (10:01→23:57)
--- NOTE | 2022-01-11 10:47 | CHAPLAIN ---
Rishi was up in the chair, working on his laptop. He said he is feeling well, but needs to be here for antibiotics. He works for [employer] and said he feels well enough to work remotely today rather than taking a day off. He in touch with family and seems to be comfortable being here.
--- NOTE | 2022-01-11 13:39 | W.PM.PROGNOT ---
Date of Service Date of service: 01/11/22 Time of Service: 13:39 Assessment and Plan Assessment and plan (1) Diverticulitis of intestine with abscess: Status: Acute Assessment and plan: Mr. Garcia is a pleasant 41 year old with diverticulitis with small 2 x 2.5 cm abscess. he is PAD #1. He has been on IV antibiotics. He is Afebrile and has a normal WBC Plan: Diet: Advacne to low fiber diet Abx- Cipro and flagyl for another 24 hours then switch to po Activity- ambulate ad medardo Pain control- multimodal with tylenol, toradol and Morphine DVT prophilaxis- ambulation and SCD's GI profilaxis- protonix IV Start Miralax Discharge planning- hopefully home tomorrow on low fiber diet with follow up in the office in 2 weeks Outpatient colonoscopy in 6 weeks Subjective Subjective Interval history since last seen: Rishi is doing well today. He has had no fevers. Pain is mostly resolved. Has some intermittent pain in the LLQ that is sharp. Passing flatus, no BM Toerlating clear liquids without N/V or worsening pain Exam Resp Effort & Inspection: normal respiratory effort GI Palpation: soft, no hepatosplenomegaly and nontender Objective Last Vital Signs Temp 97.5 F L 01/11/22 07:15 Pulse 55 L 01/11/22 07:15 Resp 18 01/11/22 07:15 BP 126/78 01/11/22 07:15 Pulse Ox 97 01/11/22 07:15 Laboratory Results - last 24 hr 01/10/22 01/10/22 01/10/22 15:05 15:05 15:08 WBC RBC Hgb Hct MCV MCH MCHC RDW Plt Count MPV Immature Gran % Neutrophils % Lymphocytes % Monocytes % Eosinophils % Basophils % Nucleated RBC % Absolute Neutrophils Absolute Lymphocytes Absolute Monocytes Absolute Eosinophils Absolute Basophils PT 11.2 H INR 1.1 APTT 31.1 H VBG Lactate 0.7 COVID-19 Source Nasal/Nares SARS-CoV-2 (PCR) Negative 01/10/22 01/11/22 16:06 06:45 WBC 7.55 RBC 4.01 L Hgb 12.3 L Hct 35.3 L MCV 88 MCH 30.7 MCHC 34.8 RDW 11.4 L Plt Count 212 MPV 9.9 Immature Gran % 0.4 Neutrophils % 65.2 Lymphocytes % 21.3 Monocytes % 9.8 Eosinophils % 3.0 Basophils % 0.3 Nucleated RBC % 0.0 Absolute Neutrophils 4.92 Absolute Lymphocytes 1.61 Absolute Monocytes 0.74 Absolute Eosinophils 0.23 Absolute Basophils 0.02 PT INR APTT VBG Lactate COVID-19 Source Cancelled SARS-CoV-2 (PCR) Cancelled PAWSS Have you Been Recently Intoxicated or Drunk Within the Last 30 days?: No Have you Ever Experienced Previous Episodes of Alcohol Withdrawal?: No Have you ever Experienced Withdrawal Seizures?: No Have you ever Experienced Delirium Tremens(DT)s?: No Have you ever undergone Alcohol Rehabilitation Treatment (i.e, inpt ot outpatient treatment programs)?: No Have you ever Experienced Blackouts?: No Have you ever Combined Alcohol with other Downers within the last 90 days?: No Have you ever Combined Alcohol with any other Substance of Abuse during the last 90 days?: No Positive Blood Alcohol level on Presentation? [PCS.BAL]: No Evidence of Increased Autonomic Activity (i.e. HR>120, tremor, sweating, agitation, nausea)?: No Result: 0
[2022-01-11] MEDS: Polyethylene Glycol 3350 17 GM PACKET PO (14:09)
[2022-01-11 15:13] VITALS: BP 131/81; PULSE 58; RESP 18; TEMP 37.3; O2SAT 100
[2022-01-11] MEDS: Pantoprazole 40 MG VIAL IVP (15:39)
[2022-01-11 23:00] VITALS: BP 114/73; PULSE 63; RESP 18; TEMP 36.8; O2SAT 98
[2022-01-12] MEDS: CIPROFLOXACIN 400 MG/200 ML BAG 200 MG IVPB ×2 (03:27→14:23)
[2022-01-12 06:52] VITALS: BP 121/76; PULSE 62; RESP 19; TEMP 36.5; O2SAT 97
[2022-01-12] MEDS: Polyethylene Glycol 3350 17 GM PACKET PO (07:43)
[2022-01-12] MEDS: metroNIDAZOLE 500 MG/100 ML BAG 100 MG IVPB ×2 (07:43→14:35)
--- NOTE | 2022-01-12 10:02 | PDOC.CMPRO ---
- If Service Date Differs Date of service: 01/12/22 Time of Service: 10:02 Care Management Progress Note S/O: A: 41 year old male admitted to [facility] on 01/10/22 for Diverticulitis of intestine with abscess. P: Anticipate Rishi will discharge home with no new services. He has a car in the parking lot, and plans to drive himself home after he's discharged. Rishi will follow up with community providers and discharge plan of care as prescribed.
--- NOTE | 2022-01-12 14:41 | DSE_ITS ---
Date of service: 01/12/22 Time of Service: 14:41 DS: Diagnosis Discharge Diagnosis (1) Diverticulitis of intestine with abscess: Status: Acute Discharge Plan Disposition Patient Disposition: HOME Condition: Stable Discharge Details Reason For Visit: Diverticulitis with Abcess Admit Date/Time: 01/10/22 16:03 Admit Provider: Dorina Fishman Attending Provider: Dorina Fishman Primary Care Provider: Nurys De La Cruz Hospital Course Hospital Course: see addendum Home Meds and New Rx's Prescriptions: New ciprofloxacin HCl [Cipro] 500 mg tablet 500 mg PO BID 4 Days Qty: 8 0RF Rx Instructions: start this medication 10 am. Yogurt daily while on antibiotics metronidazole 500 mg tablet 500 mg PO TID 4 Days Qty: 12 0RF Rx Instructions: start taking this medication at 11pm 01/12. yogurt daily while on antibiotics Discontinued ondansetron 4 mg tablet,disintegrating 4 mg PO Q6H PRN (Reason: nausea and vomiting) Qty: 10 0RF Discharge Instructions Instructions: Diverticulosis (DC), Diverticulitis (GEN) Additional Instructions: -No driving for 24 hrs -Yogurt daily while on antibiotics -Follow-up with Dr. Fishman 01/20 at 10:30 am. [facility] [address] [place] [address] [facility] -soft diet: See below -no straining to move bowels - if you do not move your bowels daily take a dose of OTC of MiraLAX -It is ok to shower as you normally do -See antibiotic instructions -You may find that your appetite is smaller. Eat 3-6 small meals throughout the day. It is important to drink lots of water after surgery, 6-10 glasses a day. -If you were given an incentive spirometry (breathing knitter machine?), continue to do this 10x/hour while awake. -We do want you up walking, at least 5-6 times per day. This is very important to prevent pneumonia and blood clots. You can climb stairs, take them slowly. -No lifting over 5 pounds for approximately 1 week. This is very important to avoid perforation. -You may find that you are very tired after eating in the hospital. This usually lasts for about a week. Gastrointestinal Soft Diet Overview Overview What is a gastrointestinal soft diet? This diet is soft in texture, low in fiber, and easy to digest. The goal is to decrease) ?in the bowel that may cause gas and discomfort. This diet is often used after abdominal surgery or as a transitional diet after flares. Meats & Meat Substitutes ? Foods Allowed: Chicken, turkey, fish, tender cuts of beef and pork, ground meats, eggs, creamy nut butters, tofu, skinless hot dogs, sausage patties without whole spices ? Foods to Avoid : Tough, fibrous meats with gristle, meat with casings (hot dogs, sausage, kielbasa), lunch meats with whole spices, shellfish, beans, chunky peanut butter, nuts Fruits and Juices ? Foods Allowed: Fruit juices without pulp, banana, avocado, applesauce, canned peaches and pears, cooked fruit without the skin/seeds.? Ground or over- cooked fruits.? Fruits ground finely in a ?smoothie?. ? Foods to Avoid: Juices with pulp, fresh fruit (except banana and avocado), dried fruits, canned fruit cocktail and pineapple, coconut, frozen/thawed berries Vegetables ? Foods Allowed: Well-cooked or canned vegetables, potatoes without skin, tomato sauces, vegetable juice ? Foods to Avoid: Raw vegetables, all corn, all mushrooms, stewed tomatoes, potato skins, stir-lee vegetables, sauerkraut, pickles, olives, all dried beans, peas, and legumes Cereals and Grains ? Foods Allowed: Low- fiber dry or cooked cereals (less than 2 grams fiber per serving), white rice, pasta, macaroni, or noodles ? Foods to Avoid: Cereals with nuts, berries, dried fruits, whole grain cereals, bran cereals, granola, brown or wild rice, whole grain pasta Breads and Crackers ? Foods Allowed: White/refined breads and rolls, plain bagel, toast, plain crackers, liban crackers ? Foods to Avoid: Whole grain breads- including white whole grain; bread/ rolls with raisins, nuts or seeds, multi-grain crackers Dairy ? Foods Allowed: Milk, cheese, yogurt, milkshakes, pudding, ice cream, cottage cheese, sherbet ;?lactose free or low lactose versions if lactose intolerant ? Foods to Avoid: Dairy product mixed with fresh fruit (except banana), berries, nuts or seeds Desserts ? Foods Allowed: Plain cake, pudding, custard, ice cream, sherbet, gelatin, fruit whips ? Foods to Avoid: Any dessert that contains nuts, dried fruits, coconut, or fruits with seeds Herbs and Spices ? Foods Allowed: All ground spices or herbs, salt ? Foods to Avoid: Whole spices such as peppercorns, whole cloves, anise seeds, celery seeds, can, darlene seeds, and fresh herbs Snacks/Other Foods ? Foods Allowed: Sugar, honey, jelly, mayonnaise, mustard, soy sauce, oil, butter, margarine, marshmallows, cookies without dried fruits or nuts, snack chips and pretzels using refined flours ? Foods to Avoid: Carbonated beverages, jams or jellies with seeds, popcorn After several weeks, slowly start to reintroduce the ?Foods to Avoid? back into your diet unless your doctor has told you otherwise. Try a small portion of one of these foods each day. If it does not bother you within 24 hours, it can be added to your diet. Continue to add new foods in this way. Some people may continue to have food sensitivities and may need to continue to avoid certain foods. If you cannot tolerate a food, avoid that food for a few weeks before you try it again. Guidelines when eating 1.??? Avoid any food that you cannot tolerate or that causes gas, bloating, or stomach pain. 2.??? Make time for your meals. Do not eat while you are in a hurry. Cut your food into small pieces. Chew each bite to a mashed potato consistency. Do not eat when you cannot concentrate on chewing well. 3.??? Drink at least 6-8 cups of fluid per day? Fluids include: water, coffee, tea, juice, milk, popsicles, soups, gelatin, pudding, ice cream, sherbet, and yogurt. In addition, choose caffeine-free beverages more often, especially if you are having?diarrhea. 4.??? A daily multivitamin may be recommended if diet is limited in amounts or variety of foods. Do not take any herbal supplements without first checking with your doctor. Stand Alone Forms: Nursing Discharge Form Referrals: Dorina Fishman MD [ [facility] STAFF PHYSICIAN] - 01/20/22 10:30 am Activity:: No lifting over 5 pounds Equipment/Supplies:: No Equipment Needed Diet:: See above DS: Summary Time Spent with Patient providing and/or coordinating discharge services: Less than 30 minutes Status at Discharge Functional status at discharge: independent ambulation Overall status at discharge: patient is progressing back to baseline Mental Status: mental status grossly normal Speech and Movement: speech and movement normal Mood: congruent mood Affect: normal affect Exam Psych Mental Status: mental status grossly normal Speech and Movement: speech and movement normal Mood: congruent mood Affect: normal affect DS: Data Vitals/I&O Vitals and I&O: Vital Signs Temperature 36.5 C 01/12/22 06:52 Temperature Source Tympanic 01/12/22 06:52 Pulse 62 01/12/22 06:52 Pulse Rhythm Regular 01/12/22 03:49 Respiratory Rate 19 01/12/22 06:52 Respiratory Effort Non-Labored 01/12/22 03:49 Respiratory Depth Normal 01/12/22 03:49 Respiratory Pattern Normal 01/12/22 03:49 Blood Pressure 121/76 01/12/22 06:52 Blood Pressure Position Supine 01/10/22 14:52 Pulse Oximetry 97 01/12/22 06:52 Oxygen Delivery Method Room Air 01/12/22 06:52 Oxygen Flow Rate 0 01/12/22 06:52 Pain Level 0 01/11/22 23:00 Intake & Output 01/11/22 01/12/22 01/12/22 23:59 11:59 23:59 Intake Total 990 / 3170 500 / 500 Balance 990 / 3170 500 / 500 Intake: IV 310 / 1710 500 / 500 Oral 680 / 1460 Other: Urine Appearance Clear Clear Urine Odor Normal Comment pT tells [employer] he has voided and flushed independently pt voiding ind ependently. Stool Size Moderate Small Stool Characteristics Soft Soft Liquid Formed Brown Voiding Methods Toilet Data Completed and Pending Labs on day of discharge: Preliminary micro results at discharge 01/10/22 16:08 Blood Culture - Preliminary Blood NO GROWTH 24 HOURS 01/10/22 15:35 Blood Culture - Preliminary Blood NO GROWTH 24 HOURS PFSH All Active Problems (Updated 01/10/22 @ 16:13 by Dorina Fishman MD) Diverticulitis of intestine with abscess (Acute) Medical History (Updated 01/10/22 @ 16:13 by Dorina Fishman MD) Bilateral groin pain (01/02/17) Diverticulitis large intestine w/o perforation or abscess w/o bleeding (~05/2021) Surgical History Hx of tonsillectomy Family History (Updated 01/10/22 @ 16:13 by Dorina Fishman MD) Father Prostate cancer Social History Smoking/Tobacco Use Status: Never Smoking risk assessment performed?: Yes Alcohol Intake: current Alcohol Intake frequency: a few times a month Drug use: Never Substance use type: does not use Do you feel safe at home: Yes Do you feel safe in your relationship?: Yes
--- NOTE | 2022-01-12 14:56 | W.PM.PROGNOT ---
Date of Service Date of service: 01/12/22 Time of Service: 14:56 Assessment and Plan Assessment and plan (1) Diverticulitis of intestine with abscess: Status: Acute Assessment and plan: See discharge orders I reviewed with the patient what he could expect at home. We will have him stay on a soft diet we discussed the rationale for that. He will follow-up with Dr. Fishman next week. He will finish 7 days worth of Cipro and Flagyl and continue on probiotics Subjective Subjective Interval history since last seen: Pt is doing well. no headaches. No CP or SOB. no productive cough. no dysuria. no leg pain or swelling. Exam Narrative Exam Narrative: PHYSICAL EXAM GENERAL APPEARANCE: Alert, healthy appearance, oriented, in no acute distress HEAD, EYES, EARS, NECK, THROAT: Head is normocephalic, pupils equal, round, reactive to light and accommodation, ocular movement intact, sclera clear and no jaundice. ?Dentition intact. No sore throat.? No jaw pain. No thrush LUNGS: normal respiration/nl chest excursion. ?Clear to auscultation B/l no R/R/W ABDOMEN: non tender to palpation Objective Last Vital Signs Temp 36.5 C 01/12/22 06:52 Pulse 62 01/12/22 06:52 Resp 19 01/12/22 06:52 BP 121/76 01/12/22 06:52 Pulse Ox 97 01/12/22 06:52 PAWSS Have you Been Recently Intoxicated or Drunk Within the Last 30 days?: No Have you Ever Experienced Previous Episodes of Alcohol Withdrawal?: No Have you ever Experienced Withdrawal Seizures?: No Have you ever Experienced Delirium Tremens(DT)s?: No Have you ever undergone Alcohol Rehabilitation Treatment (i.e, inpt ot outpatient treatment programs)?: No Have you ever Experienced Blackouts?: No Have you ever Combined Alcohol with other Downers within the last 90 days?: No Have you ever Combined Alcohol with any other Substance of Abuse during the last 90 days?: No Positive Blood Alcohol level on Presentation? [PCS.BAL]: No Evidence of Increased Autonomic Activity (i.e. HR>120, tremor, sweating, agitation, nausea)?: No Result: 0
--- NOTE | 2022-01-12 15:11 | PDOC.CMDIS ---
- If Service Date Differs Date of service: 01/12/22 Time of Service: 15:11 LACE Index Scoring Tool - Questions: Length of Stay (in days): 2 Acuity (Admit via E.D.?): Yes E.D. Visits: 2 - Answers: Total Score: 7 Risk of Readmission: Low Risk Care Management Discharge Reason for Hospitalization: Diverticulitis of intestine with abscess Discharge Plan: Per surgeon, Rishi will return home on a soft diet and follow up with Dr. Fishman next week. He will finish seven day course of IV ABX: Cipro and Flagyl and continue on probiotics as well. He will also have a colonscopy scheduled within 4-6 weeks as an outpatient. Rishi will follow up with his PCP and plan of care as prescribed. He will transport via private vehicle with his , Iris. Patient/Family Education Needs: Review discharge instructions, discuss Ask Me Three.
== END 2022-01-12 16:03 | disposition home or self-care (01) | DRG 392 ==
LOC: ER 16:16 → MS 16:38
PROVIDERS: Physician Assistant; Admitting Provider Surgery; Emergency Provider Physician Assistant; PCP Nurse Practitioner Family; Visit Provider Surgery
DX: K57.20 Diverticulitis of large intestine with perforation and abscess without bleeding (principal)
CPT/HCPCS: 36415; 87040; 87635; 99285; 83605; 85025; 85610; 85730; J0744; J1885

== ENCOUNTER 2022-01-10 16:56 | Outpatient (REF) | payer OTHER, SELFPAY ==
[2022-01-10 14:54] LABS: Abs Immature Grans 0.02 10^3/uL (0.0-0.06); Absolute Basophil Count 0.04 10^3/uL (0.0-0.2); Absolute Eosinophil Count 0.21 10^3/uL (0.0-0.7); Absolute Lymphocyte Count 1.68 10^3/uL (1.2-3.4); Absolute Monocyte Count 0.71 10^3/uL (0.1-0.8); Absolute Neutrophil Count 6.36 10^3/uL (1.2-6.7); Basophils % 0.4; Eosinophils % 2.3; HCT 39.1 % (40.0-50.0); HGB 13.8 g/dL (13.5-17.5); Immature Grans % 0.2; Lymphocytes % 18.6; MCH 30.9 pg (27.0-33.0); MCHC 35.3 % (32.0-36.0); MCV 88 fL (80-95); MPV 10.3 fL (8.0-11.0); Monocytes % 7.9; Neutrophils % 70.6; Platelet Count 256 10^3/uL (130-400); RBC 4.47 10^6/uL (4.36-5.78); RDW 11.6 % (11.8-14.1); RDW-SD 37.5 fL; WBC 9.02 10^3/uL (4.4-10.8)
[2022-01-10 15:03] LABS: ESR 32 mm/hr (0-15)
[2022-01-10 15:11] LABS: ALT 22 U/L (16-63); AST 22 U/L (15-37); Alkaline Phosphatase 65 U/L (46-116); Amylase 46 U/L (25-115); Anion Gap 6.9 mmol/L (3-11); BUN 12 mg/dL (7-18); Bilirubin, Total 0.6 mg/dL (0.2-1.0); CO2 31.1 mmol/L (21.0-32.0); Chloride 103 mmol/L (98-107); Estimated GFR 96.37 (mL/min/1.73m2); Glucose 85 mg/dL (74-106); Lipase 45 U/L (73-393); Potassium 4.3 mmol/L (3.5-5.1); Sodium 141 mmol/L (136-145); Total Protein 7.8 g/dL (6.4-8.2)
== END 2022-01-10 16:57 | disposition home or self-care (01) ==
LOC: LBN 16:56
PROVIDERS: PCP Nurse Practitioner Family; Visit Provider Nurse Practitioner Family
DX: R10.33 Periumbilical pain (principal)
CPT/HCPCS: 80053; 83690; 85652; 82150; 85025

== ENCOUNTER 2022-02-28 09:15 | Day surgery (SDC) | payer OTHER, SELFPAY ==
--- NOTE | 2022-02-27 19:28 | W.PREOPHP ---
Assessment and Plan Assessment and plan (1) Diverticulitis of intestine with abscess: Status: Acute Assessment and plan: I think is fine to proceed with colonoscopy as planned. History of Present Illness History of Present Illness Chief Complaint: Diverticuitis Narrative: Jez is a 41-year-old male with a recent history of complicated diverticulitis resulting in perforation. He has made nice recovery. He is here today for follow-up surveillance colonoscopy. PFSH All Active Problems Diverticulitis of intestine with abscess (Acute) Medical History Bilateral groin pain (01/02/17) Diverticulitis large intestine w/o perforation or abscess w/o bleeding (~05/2021) Surgical History Hx of tonsillectomy Family History Father Prostate cancer Social History Smoking/Tobacco Use Status: Never Smoking risk assessment performed?: Yes Alcohol Intake: current Alcohol Intake frequency: a few times a month Drug use: Never Substance use type: does not use Do you feel safe at home: Yes Do you feel safe in your relationship?: Yes Meds Allergies and Home Medications Allergies Allergy/AdvReac Type Severity Reaction Status Date / Time No Known Allergies Allergy Unverified 02/28/22 09:30 Home Medications Medication Instructions Recorded Confirmed Type Unknown [No Known Home Meds] 01/22/22 01/22/22 History Exam Const General: cooperative, healthy appearing and comfortable Orientation: awake and oriented x3 Eyes General: appearance normal, both eyes and all related structures Conjunctivae: conjunctivae normal Sclera: sclerae normal Resp Effort & Inspection: normal respiratory effort and able to speak in complete sentences Auscultation: clear to auscultation bilaterally Cardio Jugular venous pressure: no JVD Rate: regular rate Rhythm: regular rhythm Heart Sounds: S1 normal and S2 normal GI Inspection: non-distended Palpation: soft, no guarding, no hernias and nontender Auscultation: normal bowel sounds Skin General skin exam: normal turgor Neuro General: patient alert, patient awake and patient oriented x3 Cognition: normal cognition Extrem Right lower extremity: no edema Left lower extremity: no edema
--- NOTE | 2022-02-27 19:29 | W.PM.DSUDISC ---
Date of service: 02/28/22 Time of Service: 12:23 Discharge Plan Disposition Patient Disposition: Home Condition: Good Discharge Details Reason For Visit: Colonoscopy Attending Provider: Juan Aden Primary Care Provider: Nurys De La Cruz Home Meds and New Rx's Prescriptions: No Action No Known Home Meds Discharge Instructions Additional Instructions: 1. If tolerated, consume a soft, low fiber diet for 1-2 days. [address] Do not drive, drink alcohol, operate machinery, make critical decisions, or do activities that require coordination or balance for 24 hours. 3. Because air was put into your colon during the procedure, expelling air from your rectum (passing gas or farting) is normal. 4. You may not have a bowel movement for 1-3 days because of the colonoscopy prep. This is normal. 5. Go directly to the emergency room if you notice any of the following: Develop chills (warm to touch), or if you have a thermometer and your temperature is above 101 Difficulty breathing or difficultly swallowing Persistent vomiting Severe abdominal pain, other than gas cramps Severe chest pain Black, tarry stools Any bleeding ? exceeding one tablespoon 6. Call your physician if the site where your intravenous was started becomes red, swollen, painful, and warm to touch. 7. Your physician has reviewed your pre-procedure medications. Please continue to take those medications as previously ordered. You will be given specific information/education regarding any changes to your medications before leaving. Activity:: Activity as Tolerated Diet:: As Tolerated Discharge Orders Discharge Orders: Discharge Order (Routine); Ordered 02/27/22 Ordered By: Juan Aden Discharge Data Discharge Date/Time-TO BE ENTERED AT DEPARTURE: 02/28/22 12:10 DS: Diagnosis Discharge Diagnosis (1) Diverticulitis of intestine with abscess: Status: Acute Asessment and Plan: Colonoscopy shows sigmoid diverticulosis. There is no other abnormalities. I recommend a routine screening colonoscopy for health maintenance in 10 years
--- NOTE | 2022-02-27 19:30 | W.COLOREPORT ---
Date of service: 02/28/22 Time of Service: 11:08 Colonoscopy Report Date of procedure: 02/28/22 Pre-op diagnosis general: Diverticulosis Post-op diagnosis procedure note: same Procedure: Colonoscopy Surgeon: Juan Aden Anesthesia Type: General:No Airway Estimated blood loss (mL): 0 Pathology: none sent Complications: None Disposition: same day Indications: Jez is a 41-year-old male with a single episode of complicated diverticulitis. He was hospitalized with a 2.5 cm abscess requiring antibiotics. This was in December. Since then, he is in his recovery. He is doing well at home, maintaining his weight, and not experiencing any other symptoms of diverticulitis. He is here for a colonoscopy to confirm that diagnosis, and rule out other more worrisome diagnoses like colon cancer Prep: Miralax/Dulcolax Procedure Start Time: 10:53 Procedure End Time: 11:08 Retraction Time: 9 Findings: Mild sigmoid diverticulosis Procedure Description: After the induction of monitored anesthetic care, and with the patient in left lateral decubitus position, I began by performing an external anorectal exam.? Perineum and skin were normal, as was the anal verge.? There was no evidence of external hemorrhoids.? Next, I performed a digital rectal exam.? I did not appreciate any abnormal findings.? Next, I advanced a colonoscope into the rectal vault.? I performed retroflexion.? This was normal.? Using insufflation, I then advanced the colonoscope beyond the rectal folds and into the sigmoid colon before advancing towards the cecum.? There was mild sigmoid diverticulosis. The quality of the prep was excellent.? The scope was noted to be in the cecum by identification of the ileocecal valve and appendiceal orifice.? I then began withdrawing the colonoscope using repeated irrigation as necessary for full evaluation of the colonic mucosa. ?Once the scope was withdrawn to the level of the rectum, great care was taken to examine portions of the rectal folds.? Finally, the scope was withdrawn and the patient was brought to the same-day surgery recovery unit as the anesthetic wore off. ?I did not see any evidence of colon polyps. The findings and instructions were shared with the patient prior to discharge. I recommend another screening colonoscopy in 10 years time.
[2022-02-28 09:17] VITALS: BP 134/79; PULSE 63; RESP 16; TEMP 36.7; O2SAT 98
[2022-02-28] MEDS: Lactated Ringers 1,000 ML 80 ML IV (09:45)
--- NOTE | 2022-02-28 10:19 | W.ANESPRE ---
General Info Date of Service Date Performed: 02/28/22 Height: 6 ft 1 in Weight: 78.2 kg Body Mass Index (BMI): 22.7 Surgical Procedure: Operation Date: 02/28/22 10:20 Proposed Procedure Side Surgeon murali Aden MD Meds Allergies and Home Medications Allergies Allergy/AdvReac Type Severity Reaction Status Date / Time No Known Allergies Allergy Unverified 02/28/22 09:30 Home Medication Medication Instructions Recorded Unknown [No Known Home Meds] 01/22/22 Current Visit Medications: Current Medications Generic Name Dose Route Start Last Admin Trade Name Freq PRN Reason Stop Dose Admin Hyoscyamine Sulfate 0.125 mg 02/27/22 19:31 Hyoscyamine 0.125 Mg Sl/Oral/Chew SL DIRECTED PRN Ringer's Solution 1,000 mls @ 80 mls/hr 02/28/22 06:00 02/28/22 09:45 IV 03/29/22 23:59 80 mls/hr INFUSION ARACELI Administration IV Miscellaneous Supplies 1 each 02/28/22 06:00 Iv Access IV 03/29/22 23:59 DIRECTED ARACELI Ondansetron HCl 4 mg 02/27/22 19:31 Ondansetron 4 Mg/2 Ml Vial IVP Q4H PRN PRN Nausea / Vomiting Sodium Chloride 0 ml 02/28/22 06:00 Normal Saline Flush 10 Ml Syr IV 03/29/22 23:59 PRN PRN Sodium Chloride 0 ml 02/28/22 06:00 Normal Saline 10 Ml Vial IJ 03/29/22 23:59 DIRECTED PRN Sterile Water 0 ml 02/28/22 06:00 Water,Injection,Sterile 10 Ml Vial IJ 03/29/22 23:59 DIRECTED PRN PFSH Active Problems Active Problems: Problem Status Onset Code Diverticulitis of intestine with abscess K57.80 Medical History Medical History Bilateral groin pain (01/02/17) Diverticulitis large intestine w/o perforation or abscess w/o bleeding (~05/2021) Surgical History Surgical History Hx of tonsillectomy Tobacco Smoking/Tobacco Use Status: Never Alcohol Alcohol Intake: current Alcohol intake frequency: a few times a month Substance Use Substance use: Never Substance use type: does not use Vital Signs and Lab Results Vital Signs Most Recent Vital Signs in EMR: Most Recent Vital Signs Temp Pulse Resp BP Pulse Ox 36.7 C 63 16 134/79 98 02/28/22 09:17 02/28/22 09:17 02/28/22 09:17 02/28/22 09:17 02/28/22 09:17 Lab Results Blood Type / Crossmatch: No Data to Display Complete Blood Count: No Data to Display Complete Metabolic Panel: No Data to Display Liver Function Panel: No Data to Display Coagulation Panel: No Data to Display Cardiac Panel: No Data to Display Arterial Blood Gas: No Data to Display Venous Blood Gas: No Data to Display Pancreas Panel: No Data to Display Thyroid Panel: No Data to Display Infectious Disease: No Data to Display Blood Cultures: No Data to Display Toxicology Panel: No Data to Display Anesthesia Assessment and Plan Anesthesia History Personal History: No History of Anesthesia Complications Family History: No Family History of Anesthesia Complications Exercise Tolerance Exercise Tolerance: Metabolic Equivalents>4 Pertinent Negatives Pertinent Negatives: No Symptoms of GERD, No Major Cardiovascular Symptoms or Complaints, No Major Pulmonary Symptoms or Complaints and No History of CVA/TIA Cardiac & Pulmonary Exam Cardiac Exam: Normal S1/S2 Heart Sounds Pulmonary Exam: Clear Bilateral Breath Sounds Implantable Cardiac Device Does patient have a Pacemaker or an ICD?: No Airway Exam Known Difficult Airway: No Mallampati Class: 2 Mouth Opening: Normal (> 3cm) Thyromental Distance: Greater than 3 cm Neck Range of Motion: Full ROM Neck Circumference: Normal Teeth Condition: Normal Dentition ASA Classification ASA Score: ASA 2 Emergency Case?: No NPO Status NPO Status: NPO Clears >2 hours, Solids >8 hours Anesthesia Plan Resuscitation Status: Full Code Anesthesia Technique: General Anesthesia Airway Planned: Natural Airway Monitors Used: Standard Monitors
[2022-02-28 10:39] VITALS: BMI 22.7
[2022-02-28 11:19] VITALS: BP 108/71; PULSE 57; RESP 18; TEMP 36.6; O2SAT 96
--- NOTE | 2022-02-28 11:31 | W.ANESPOSTOP ---
Postoperative Evaluation Date, Time and Location Date Performed: 02/28/22 Time Performed: 11:31 Patient Location: Day Surgery Unit Vital Signs Most Recent Imported Vital Signs: Most Recent Vital Signs Temp Pulse Resp BP Pulse Ox 36.6 C 57 L 18 108/71 96 02/28/22 11:19 02/28/22 11:19 02/28/22 11:19 02/28/22 11:19 02/28/22 11:19 Pain Score Most Recent Pain Score: Most Recent Pain Score Pain Level 0 02/28/22 11:19 Assessment Mental Status: Awake (Alert & Oriented to Patient Baseline) Airway and Respiratory Function: Patent airway with normal (patient baseline) respiratory exam Cardiovascular Function: Hemodynamically Stable Hydration Status: Adequately Hydrated Nausea & Vomiting: No Nausea or Vomiting Pain: Pt. Denies Any Pain Peripheral Nerve Block: Patient did not receive a nerve block
[2022-02-28 11:50] VITALS: BP 127/84; PULSE 53; RESP 16; TEMP 36.3; O2SAT 98
== END 2022-02-28 12:10 | disposition home or self-care (01) ==
LOC: SUR 09:15
PROVIDERS: PCP Nurse Practitioner Family; Visit Provider Surgery
PROC: 0DJD8ZZ Inspection of Lower Intestinal Tract, Via Natural or Artificial Opening Endoscopic (ICD-10-PCS; CPT 45378; principal; 2022-02-28 10:15)
DX: K57.30 Diverticulosis of large intestine without perforation or abscess without bleeding (principal)
CPT/HCPCS: 45378

== ENCOUNTER 2023-06-06 13:03 | Outpatient (REF) | payer OTHER, SELFPAY ==
[2023-06-06 14:35] LABS: HCT 40.9 % (40.0-50.0); HGB 14.6 g/dL (13.5-17.5); MCH 30.9 pg (27.0-33.0); MCHC 35.7 % (32.0-36.0); MCV 87 fL (80-95); MPV 11.1 fL (8.0-11.0); Platelet Count 215 10^3/uL (130-400); RBC 4.72 10^6/uL (4.36-5.78); RDW 12.2 % (11.8-14.1); RDW-SD 38.8 fL; WBC 6.13 10^3/uL (4.4-10.8)
[2023-06-06 15:35] LABS: ALT 27 U/L (16-63); AST 21 U/L (15-37); Albumin 4.3 g/dL (3.4-5.0); Alkaline Phosphatase 59 U/L (46-116); Anion Gap 11.5 mmol/L (3-11); BUN 15 mg/dL (7-18); Bilirubin, Total 0.5 mg/dL (0.2-1.0); CO2 26.5 mmol/L (21.0-32.0); CREATININE 0.9 mg/dL (0.70-1.30); Calculated LDL 147 mg/dL (<100); Chloride 106 mmol/L (98-107); Cholesterol 221 mg/dL (<200); Estimated GFR 108.68 (mL/min/1.73m2); Glucose 82 mg/dL (74-106); HDL Cholesterol 43 mg/dL (40-60); Potassium 3.9 mmol/L (3.5-5.1); Sodium 144 mmol/L (136-145); Total Protein 7.5 g/dL (6.4-8.2); Triglyceride 155 mg/dL (<150)
[2023-06-07] LABS: PSA, Screening 0.6 ng/mL (<=2.5)
== END 2023-06-06 13:04 | disposition home or self-care (01) ==
LOC: NCHCN 13:03
PROVIDERS: PCP Nurse Practitioner Family; Visit Provider Nurse Practitioner Family
DX: Z80.42 Family history of malignant neoplasm of prostate (principal); Z00.00 Encounter for general adult medical examination without abnormal findings
CPT/HCPCS: 80053; 80061; 84153; 85027

== ENCOUNTER 2024-06-18 16:54 | Outpatient (REF) | payer OTHER, SELFPAY ==
[2024-06-18 21:07] LABS: HCT 40.5 % (40.0-50.0); HGB 14.6 g/dL (13.5-17.5); MCH 31.4 pg (27.0-33.0); MCV 87 fL (80-95); MPV 10.8 fL (8.0-11.0); Platelet Count 210 10^3/uL (130-400); RBC 4.65 10^6/uL (4.36-5.78); RDW 12.2 % (11.8-14.1); RDW-SD 38.9 fL; WBC 5.91 10^3/uL (4.4-10.8)
[2024-06-18 21:27] LABS: ALT 29 U/L (16-63); AST 20 U/L (15-37); Albumin 4.3 g/dL (3.4-5.0); Alkaline Phosphatase 60 U/L (46-116); Anion Gap 7.1 mmol/L (3-11); BUN 13 mg/dL (7-18); Bilirubin, Total 0.5 mg/dL (0.2-1.0); CO2 30.9 mmol/L (21.0-32.0); CREATININE 0.9 mg/dL (0.70-1.30); Calcium 8.9 mg/dL (8.5-10.1); Calculated LDL 121 mg/dL (<100); Chloride 106 mmol/L (98-107); Cholesterol 209 mg/dL (<200); Estimated GFR 108.01 (mL/min/1.73m2); Glucose 78 mg/dL (74-106); HDL Cholesterol 43 mg/dL (>or=40); Potassium 4.4 mmol/L (3.5-5.1); Sodium 144 mmol/L (136-145); Total Protein 7.4 g/dL (6.4-8.2); Triglyceride 229 mg/dL (<150)
[2024-06-19 18:51] LABS: PSA, Screening 0.6 ng/mL (<=2.5)
== END 2024-06-18 16:55 | disposition home or self-care (01) ==
LOC: NCHCN 16:54
PROVIDERS: PCP Nurse Practitioner Family; Visit Provider Nurse Practitioner Family
DX: Z00.00 Encounter for general adult medical examination without abnormal findings (principal); Z80.42 Family history of malignant neoplasm of prostate
CPT/HCPCS: 80053; 80061; 84153; 85027